=== PATIENT | male | born 1940 | race Caucasian/White ===

== ENCOUNTER 2019-01-11 07:05 | Inpatient (IN) | payer MEDICARE, BC ==
[2018-12-30 09:31] LABS: HEMATOCRIT 38.9 % (42.0-52.0); HEMOGLOBIN 13.1 gm/dL (14.0-18.0); MCH 30.9 pg (26.0-34.0); MCHC 33.8 g/dL (28.0-37.0); MCV 91.6 fL (80.0-100.0); MPV 8.9 fl. (7.2-11.1); RBC 4.24 mil/uL (4.50-6.00); RDW-CV 14.3 % (10.5-14.5); WBC 4.6 thou/uL (4.0-11.0)
[2018-12-30 09:44] LABS: INR 1.1; PROTIME 10.8 Seconds (9.20-11.50)
[2018-12-30 09:50] LABS: URINE BILIRUBIN NEGATIVE (Negative); URINE BLOOD NEGATIVE (Negative); URINE CLARITY CLEAR; URINE COLOR YELLOW; URINE GLUCOSE-RANDOM NEGATIVE (Negative); URINE KETONES NEGATIVE (Negative); URINE LEUKOCYTES-REFLEX NEGATIVE (Negative); URINE NITRITE-REFLEX NEGATIVE (Negative); URINE PROTEIN NEGATIVE (Negative); URINE SPECIFIC GRAVITY 1.025 (1.005-1.030); URINE UROBILINOGEN 0.2 E.U./dl (0.2-1.0)
[2018-12-30 10:03] LABS: ALBUMIN 3.5 g/dL (3.4-5.0); CALCIUM 8.9 mg/dL (8.5-10.1); CREATININE 1.1 mg/dL (0.6-1.3); POTASSIUM 4.2 mmol/L (3.5-5.1); TOTAL BILIRUBIN 0.4 mg/dL (<0.1-1.0); TOTAL PROTEIN 6.8 g/dL (6.4-8.2)
--- NOTE | 2018-12-30 13:45 | EKG ---
[place] [address] ELECTROCARDIOGRAM REPORT Name: HURDMCKENZIEGOPAL BETANCOURT Room: PRE IN [facility].#: [id number] Admission: Attend Phys: Edelmira Mendosa Discharge: Date of : 44 Report #: [id number] THIS REPORT FOR: //name// [facility] Test Date: 2018-12-30 Test Time: 09:20:46 Pat Name: MCKENZIE HURD Department: Room: Gender: M Case Coordinator: : 1940 Requested By: Alfonso Dotson Order Number: [id number] MD: Damian Mariscal Measurements Intervals [place] Rate: 79 P: -69 NJ: 280 QRS: 7 QRSD: 88 T: -16 QT: 402 QTc: 461 Interpretive Statements Sinus or ectopic atrial rhythm Prolonged [place] interval Low voltage, precordial leads Anteroseptal infarct, old, possible Borderline T abnormalities, inferior leads Baseline wander in lead(s) V1 No previous ECG available for comparison Electronically Signed On 12-30-2018 13:45:45 CDT by Damian Mariscal [email or web address] <ELECTRONICALLY SIGNED> By: Damian Mariscal MD, FAC 12/30/18 1345 0920 Damian Mariscal MD, [facility] /EPI
[~2019-01-11] VITALS: Ht 177.8 cm; Wt 99.8 kg
[~2019-01-11 07:05] MED LIST: B12INJ IM; CO Q-10100 MG PO; ELIQUIS5 M1 PO; ELIQUIS5 MG PO; HYDROXYCHLOROQ200 M1 PO; LIVALO2 MG PO; NEURONTIN 300300 M1 PO; NORCO 5-325 TA1 EACH PO; STOOL SOFTENER100 MG PO; TOPROL XL25 MG PO; VITAMIN D3400 UNIT PO
[2019-01-11 08:48] VITALS: BP 113/73
--- NOTE | 2019-01-11 19:45 | NUR ---
PT ARRIVED ON UNIT ABOUT 1530 FROM PACU. VITALS STABLE. DRESSING IS CLEAN DRY AND INTACT. DID CPM FOR 2 HOURS -5 TO 75. POLARPACK, DRAIN, SCDs AND TEDs IN PLACE. IV IN L HAND PATENT, INFUSING. ON CAPNO. DENIED PAIN. DENIED NAUSEA. CALL LIGHT WITHIN REACH. FALL PRECAUTIONS IN PLACE.
[2019-01-12] VITALS: BP 107/59
[2019-01-12 04:00] VITALS: BP 100/50
[2019-01-12 04:47] LABS: HEMATOCRIT 33.4 % (42.0-52.0); HEMOGLOBIN 11.2 gm/dL (14.0-18.0)
--- NOTE | 2019-01-12 04:56 | NUR ---
PT REMAINED A&O X 4. VITALS, SpO2 STABLE. DRESSING CLEAN, DRY, AND INTACT. HEMO VAC IN PLACE WITH SANGUINEOUS DRAINAGE. PT VOIDED ADEQUATELY. PAIN CONTROLLED BY MEDS. PT WELL TOLERATED CPM. NO NAUSEA OR VOMITING. IV ANTIBIOTIC GIVEN ORDERED. WILL CONTINUE TO MONITOR.
--- NOTE | 2019-01-12 06:02 | NUR ---
HEMOVAC DRAIN DISCONTINUED PER ORDER.
[2019-01-12 07:50] VITALS: BP 110/69
[2019-01-12] MEDS ORDERED: MIRALAX17 GM PO (07:57)
[2019-01-12] MEDS ORDERED: PERCOCET PO (07:57)
[2019-01-12 11:00] VITALS: BP 110/69
--- NOTE | 2019-01-12 13:29 | NUR ---
RECIEVED O.T. ORDER. WILL DEFER TO P.T. AT THIS TIME. PLEASE ORDER FURTHER O.T. SERVICES IF NEEDED.
[2019-01-12 14:53] VITALS: BP 107/57
--- NOTE | 2019-01-12 18:25 | NUR ---
ASSUMED CARE OF PATIENT AT APPROX 0730. ALERT AND ORIENTED X4. ASSESSMENT COMPLETED AND CHARTED. VSS ON ROOM. NO COMPLAINTS OF SOA. PAIN AND NAUSEA HAVE BEEN MANAGED WITH MEDICATIONS. HYDROCODOEN CAUSES NAUSEA, SO ONLY BEEN GIVING OXY IR THIS AFTERNOON WITH NO FURTHER COMPLAINTS OF NAUSEA. PATIENT UP TO CHAIR THIS MORNING, WORKED WELL WITH THERAPIES AND PROGRESSED TOWARD GOALS. CPM IN USE ORDERD. FALL PRECAUTIONS IN PLACE. CALL LIGHT WITHIN REACH. HOURLY ROUNDS COMPLETED. NURSING WILL CONTINUE TO MONITOR.
[2019-01-13 01:00] VITALS: BP 107/65
[2019-01-13 04:33] LABS: HEMATOCRIT 31.6 % (42.0-52.0); HEMOGLOBIN 10.7 gm/dL (14.0-18.0)
[2019-01-13 05:15] VITALS: BP 103/54
--- NOTE | 2019-01-13 05:39 | NUR ---
PT REMAINED A&O X 4. LOW GRADE TEMPERATURE, INCENTIVE SPIROMETER ENCOURAGED Q1H WHILE AWAKE. MEDS PROVIDED ORDERED FOR PAIN. PT REPORTED EFFECTIVE PAIN MANAGEMENT. NO NAUSEA OR VOMITING. HOURLY ROUNDING COMPLETED. POLAR IN PLACE, JOAQUINA HOSE ON BILATERALLY. RT KNEE DRESSING CLEAN AND INTACT. PT TOLERATING CPM. WILL CONTINUE TO MONITOR.
[2019-01-13 08:00] VITALS: BP 109/64
[2019-01-13 08:52] VITALS: BP 109/64
--- NOTE | 2019-01-13 12:15 | NUR ---
PT.SLEEPING. AT BEDSIDE AND ANSWERED ALL QUESTIONS. THEY ARE PLANNING ON DISCHARGE TODAY AFTER AFTERNOON THERAPY. SHE SAID PT.HAS HOME WALKER,HERE IN ROOM. DISCUSSED CPM AND POLAR TAYA. PT.IS NORMALLY INDEPENDENT AT HOME. CHOSE [facility]. CM MADE REFERRAL AND FAXED DISCHARGE SUMMARY AND MED LIST TO DONNY. CONFIRMED THAT PT.HAS ELIQUIS 5MG AT HOME. IS ON IT FOR A.FIB. WOULD LIKE PRESCRIPTIONS EARLY SO SHE CAN GET THEM FILLED BEFORE SHE TAKES PT.HOME.
--- NOTE | 2019-01-13 16:20 | NUR ---
ASSUMED CARE OF PATIENT AT APPROX 0730. ALERT AND ORIENTED X4. ASSESSMENT COMPLETED AND CHARTED. VSS ON ROOM AIR. NO COMPLAINTS OF NAUSEA OR SOA. PAIN HAS BEEN MANAGED WITH ORAL MEDICATION. PATIENT WORKED WELL WITH THERAPIES AND PROGRESSED TOWARD GOALS. PATIENT DISCHARGED HOME WITH HOME HEALTH AT 1618 WITH ALL PERSONAL BELONGINGS, PRESCRIPTIONS AND DISCHARGE INFORMATION.
--- NOTE | 2019-01-18 08:36 | OP ---
[facility] [address] [place] [address] OPERATIVE REPORT Name: MCKENZIE HURD Room: [address] IN M.R.#: [id number] Admission: 01/11/19 Attend Phys: Edelmira Mendosa Discharge: 01/13/19 Date of : 44 Report #: [id number] THIS REPORT FOR: //name// CC: Alfonso Chahal DATE OF SERVICE: 01/11/2019 PREOPERATIVE DIAGNOSIS: Right knee osteoarthritis. POSTOPERATIVE DIAGNOSIS: Right knee osteoarthritis. PROCEDURE: Right total knee arthroplasty with Navio. SURGEON: Alfonso Dotson II, DO PSYCHOLOGY ASSISTANT: INNA Schneider. ANESTHESIA: General endotracheal. ESTIMATED BLOOD LOSS: 50 mL. ANTIBIOTICS: Per operative record. DRAINS: Medium Hemovac. COMPLICATIONS: None. CONDITION: The patient is stable to recovery room. BRIEF HISTORY: The patient was seen in the preoperative area. Preoperative H and P was performed. Site was marked, questions were answered. Risks and benefits were discussed with the patient in detail about the surgery. The patient wished to proceed assuming all risks. OPERATIVE PROCEDURE: The patient was taken to the operative suite, placed supine on the operative table and given appropriate anesthesia. The patient's right knee was sterilely prepped and draped. Surgery began by inflation of the tourniquet up to 300 mmHg for the duration of the procedure. Incision was then made over the anterior aspect of the knee and carried down to subcutaneous tissues. A medial parapatellar arthrotomy was performed and carried down to bone. The patella was then everted and excess osteophytes and soft tissues were removed from around the femur and tibia. The JolieBox robotic guide pin was then placed in the tibia and femur in appropriate fashion. The knee was then registered through the JolieBox software and the robot was activated, [place] [id number] OPERATIVE REPORT Name: MCKENZIE HURD Room: [address]#: [id number] Admission: 01/11/19 Attend Phys: Edelmira Mendosa Discharge: 01/13/19 Date of : 44 Report #: [id number] handpiece was utilized to create the cutting holes for the cutting blocks. The femoral cutting block was then applied, appropriate cut was made to the distal femur and bone was removed. The 4-in-1 cutting block was then applied, aligned with the JolieBox robotic software and pinned in appropriate position and appropriate cuts were made. Attention was then turned to the tibia. Retractors were placed along the collateral ligaments to protect these as well as in the posterior aspect. The tibial cutting block was then applied, checked with a drop tobi for rotational alignment and slope as well as with robotic assistance. Appropriate cut was made. Tibial bone was then removed. Excess meniscus and soft tissues were removed from around the joint capsule and cautery was utilized for hemostasis. The tibial tray was then applied and checked for rotational alignment with the drop tobi, pinned in appropriate position. Reamer was then applied and box cut was reamed. This was then trialed with the appropriate spacer, which showed excellent fit and fill of the knee and excellent stability of the knee throughout all range of motion. Patella was then reamed in appropriate fashion and sized to appropriate size. Three peg holes were drilled and it was trialed and showed excellent flexion and extension, excellent tracking of the patella within the groove. These trials were then removed. The tibia was punched in appropriate fashion. Bone ends were cleaned with Pulsavac irrigation and cement was mixed and applied to the final implants. These were malleted into position and held the knee in extension and compressed to allow the cement to cure. After time had passed and cement had cured, excess was removed utilizing a [place] and osteotome. The final spacer was then trialed and selected and the final spacer was malleted into position. Knee was once again reduced and showed excellent flexion and extension, excellent tracking of the patella within the groove and excellent stability on medial and lateral testing. Tourniquet was deflated. Hemostasis was obtained with electrocautery. Copious irrigation was performed of the knee. The medium Hemovac drain was applied. The capsule was then closed with 2 FiberWire and 1 Vicryl in semxon-dy-dolkt fashion. Skin was closed with 2-0 Vicryl and a running Monocryl stitch. The incision sites for the tracker pins were closed with a nylon stitch. Dermabond and sterile dressing was applied as well as an Dennis wrap and PolarCare. The patient was transported to the recovery room in stable condition. Counts correct throughout the procedure. <ELECTRONICALLY SIGNED> By: Alfonso Dotson II, DO 01/18/19 0836 [id number] Dotson II, DO /nt
== END 2019-01-13 16:18 | disposition home health service (06) | DRG 470 ==
LOC: M.TBA 07:05 → M.ORTHSURG 07:05 → M.PRE 10:24 → M.ORTHSURG 16:25
PROVIDERS: Orthopaedic Surgery; ADMIT Internal Medicine
PROC: 0SRC0J9 Replacement of Right Knee Joint with Synthetic Substitute, Cemented, Open Approach (ICD-10-PCS; principal; 2019-01-11)
DX: M17.11 Unilateral primary osteoarthritis, right knee (principal); D62 Acute posthemorrhagic anemia; I10 Essential (primary) hypertension; I48.91 Unspecified atrial fibrillation; I25.10 Atherosclerotic heart disease of native coronary artery without angina pectoris; Z88.8 Allergy status to other drugs, medicaments and biological substances; Z95.1 Presence of aortocoronary bypass graft; Z79.899 Other long term (current) drug therapy